=== PATIENT | male | born 1955 | race Caucasian/White ===

== ENCOUNTER → 2017-05-30 | Outpatient (CLI) | payer MEDICARE ==
[~2017-05-30] MED LIST: CEPH-38 PO; DIAZ10TA PO; IOHEXOL 350 MG/ML 100 ML (OMNIPAQUE 350) VIAL IV ONE; METH10TA2 PO; NS 250 ML (IVPB) BAG IV ONE; antibx
--- NOTE | 2017-05-30 15:01 | Diagnostic Imaging Report ---
PROCEDURE: CT abdomen and pelvis with and without contrast. TECHNIQUE: Precontrast acquisitions were acquired through the abdomen and pelvis. Multiple contiguous axial images were obtained through the abdomen and pelvis after the administration of intravenous contrast. INDICATION: Scrotal pain. Pelvic pain. Flank pain. Hematuria. COMPARISON: 11/17/2009 FINDINGS: Included portions of the lung bases show punctate intrafissural micronodule on the left (image 7, series 2). This is stable compared to 11/17/2009. CT abdomen: Small bowel loops are nondistended. Normal appendix is identified. Kidneys have an unremarkable CT appearance. No renal or ureteral calculi are seen on either side. Additionally, there is no hydroureteronephrosis or other evidence of obstruction. Liver is diffusely hypodense consistent with hepatic steatosis. The spleen, pancreas, and adrenal glands have a normal appearance. There is no loculated fluid collection, free fluid, nor free air within the abdomen. No abnormal mesenteric or retroperitoneal adenopathy is seen. There is mild calcified aortic and arterial atherosclerosis. Bony structures show no acute abnormalities. CT pelvis: Urinary bladder is grossly unremarkable. There is no loculated fluid collection, free fluid, nor free air within the pelvis. No abnormal adenopathy is seen. Bony structures show no acute abnormalities. IMPRESSION: 1. No acute abnormalities are seen within the abdomen or pelvis. Kidneys and renal collecting systems have an unremarkable CT appearance. 2. Hepatic steatosis. Dictated by: Dictated on workstation # [id number]
== END ==
LOC: RAD 13:27
PROVIDERS: ATTEND Nurse Practitioner Family
DX: K76.2 Central hemorrhagic necrosis of liver (principal); N50.82 Scrotal pain; R31.9 Hematuria, unspecified
CPT/HCPCS: 74178

== ENCOUNTER 2017-06-21 08:17 | Emergency (ER) | payer MEDICARE ==
[~2017-06-21] VITALS: Ht 193 cm; Wt 124.7 kg
[~2017-06-21 08:17] MED LIST changes: -IOHEXOL 350 MG/ML 100 ML (OMNIPAQUE 350) VIAL IV ONE; -NS 250 ML (IVPB) BAG IV ONE
--- NOTE | 2017-06-21 08:42 | ED General ---
General Chief Complaint: General Problems/Pain Stated Complaint: PAIN MANAGEMENT Source of Information: Patient Exam Limitations: Other (PT MANIC--TALKING NON-STOP VERY LOUDLY, DIFFICULT TO KEEP ON SUBJECT) History of Present Illness Date Seen by Provider: Jun 21, 2017 Time Seen by Provider: 08:28 Initial Comments PT ARRIVES VIA POV --WALKS INTO ER ON HIS OWN, USING 2 CANES PT C/O SEVERE LEFT LEG AND GROIN PAIN FOR OVER A MONTH--PAIN IS NO DIFFERENT TODAY, HAS NOT TAKEN ANYTHING FOR PAIN AT ANY TIME. PT STATES HE WAS MAKING THE BED, AND "PULLED HIS HAMSTRING" AND HAS HAD PAIN UP AND DOWN MEDIAL ASPECT OF LEFT LEG AND INTO HIS GROIN EVER SINCE--PT'S MAIN COMPLAINT IS PAIN IN HIS GROIN PT STATES HIS FEET ARE ALWAYS NUMB AND TINGLY AND ARE NO DIFFERENT TODAY, NO NEW PARESTHESIAS AND NO MOTOR DEFICITS NO PROBLEMS URINATING. PT STATES HE SAW DR. CABRERA 3-4 WEEKS AGO FOR THIS PROBLEM AND WAS STARTED ON DIABETES MEDICATION AND WAS NOT GIVEN ANYTHING FOR PAIN --PT STATES HE QUIT TAKING THE DIABETES MEDICINE BECAUSE IT MADE HIM SICK. PT STATES "SHE TOLD ME TO COME HERE AND SHE WOULD ADMIT ME TO THE ER FOR PAIN MANAGEMENT AND MRI"--RN CALLED DR. CABRERA'S OFFICE AND SPOKE WITH HER NURSE. PT IS EXTREMELY NON-COMPLIANT, CALLS THEIR OFFICE NEARLY EVERY DAY FOR VARIOUS REASONS, SHE HAS REFERRED HIM TO PAIN MANAGEMENT, BUT THEY WILL NOT SEE HIM WITHOUT ANY KIND OF IMAGING, AND PT HAS REFUSED IMAGING, AND OTHER TESTS. PT STATES HE HAS CHRONIC NECK PAIN , SHOULDER PAIN AND KNEE PAIN AND USED TO BE ON OXYCODONE BUT HE QUIT TAKING IT OVER A YEAR AGO. HE STATES HE ALSO WAS ON VALIUM FOR ANXIETY BUT HE QUIT TAKING IT IN APRIL--STATES "BECAUSE I WANTED TO TAKE PAIN MEDICINE FOR MY KNEES" --YET PT CLAIMS HE HAS NOT TAKEN ANYTHING FOR PAIN IN OVER A YEAR ON MED RECONCILIATION, PT WAS PRESCRIBED HYDROCODONE BY DR. CABRERA ON 05/17/17 FOR #90 AND ALSO ON 04/17/17 FOR #90 ADDITIONALLY, PT HAD BEEN PRESCRIBED VALIUM #120 EACH MONTH IN DECEMBER, JANUARY AND MARCH 2017. PT WAS ALSO PRESCRIBED DICLOFENAC PT HAS ALSO BEEN ON METHADONE--APPARENTLY YEARS AGO. MUCH LATER PT NOW STATES THAT DR CABRERA GAVE HIM "SOME CORTISONE AND ANTI- INFLAMMATORIES" FOR THIS PAIN BUT IT UPSET HIS STOMACH SO HE DID NOT TAKE ANY MORE. PCP: DR. CABRERA Allergies and Home Medications Allergies Coded Allergies: No Allergy Information Available (Unverified , 05/30/17) Home Medications No Active Prescriptions or Reported Meds Constitutional: no symptoms reported Gastrointestinal: no symptoms reported Genitourinary: see HPI, No dysuria Musculoskeletal: see HPI Skin: no symptoms reported Psychiatric/Neurological: See HPI Past [id number] Hx Patient Social History Alcohol Use: Denies Use Recreational Drug Use: No Smoking Status: Never a Smoker Recent Foreign Travel: No Contact w/Someone Who Travel: No Surgeries History of Surgeries: Yes (C-SPINE FX/REPAIR) Surgeries: Orthopedic, Tonsillectomy Respiratory History of Respiratory Disorde: No Cardiovascular History of Cardiac Disorders: Yes Cardiac Disorders: Hypertension Neurological History of Neurological Disord: Yes Neurological Disorders: Neuropathy Genitourinary History of Genitourinary Disor: No Gastrointestinal History of Gastrointestinal Di: No Musculoskeletal History of Musculoskeletal Dis: Yes (CHRONIC NECK PAIN, SHOULDER PAIN, KNEE PAIN) Musculoskeletal Disorders: Fractures Endocrine History of Endocrine Disorders: Yes Endocrine Disorders: Diabetes, Non-Insulin dep HEENT History of HEENT Disorders: No Cancer History of Cancer: No Psychosocial History of Psychiatric Problem: Yes Behavioral Health Disorders: Anxiety Integumentary History of Skin or Integumenta: No Blood Transfusions History of Blood Disorders: No Physical Exam Vital Signs Vital Signs - First Documented 06/21/17 08:30 Temp 98.1 Pulse 115 Resp 18 B/P (MAP) 139/100 (113) Pulse Ox 98 Capillary Refill : General Appearance: No Apparent Distress, Anxious, Other (VERY DRAMATIC, TALKS NON-STOP VERY LOUDLY, AND DIFFICULT TO KEEP ON SUBJECT--PT MANIC) HEENT: PERRL/EOMI Respiratory: Normal Breath Sounds, No Accessory Muscle Use, No Respiratory Distress Cardiovascular: Regular Rate, Rhythm, No Edema, No Murmur, Normal Peripheral Pulses Gastrointestinal: Non Tender, Soft Neurologic/Psychiatric: Alert, Oriented x3, No Motor/Sensory Deficits, safety tech II- XII Norm as Tested Skin: Normal Color, Warm/Dry Progress/Results/Core Measures Suspected Sepsis SIRS Temperature: Pulse: Respiratory Rate: Laboratory Tests 06/21/17 11:20: White Blood Count 10.1 Blood Pressure / Mean: Laboratory Tests 06/21/17 11:20: Creatinine 0.93, Platelet Count 292, Total Bilirubin 0.7 06/21/17 11:55: INR Comment 1.1 Results/Orders Lab Results Laboratory Tests Test 06/21/17 11:20 06/21/17 11:55 06/21/17 12:00 Range/Units White Blood Count 10.1 4.3-11.0 10^3/uL Red Blood Count 5.11 4.35-5.85 10^6/uL Hemoglobin 16.2 13.3-17.7 G/DL Hematocrit 46 40-54 % Mean Corpuscular Volume 91 80-99 FL Mean Corpuscular Hemoglobin 32 25-34 PG Mean Corpuscular Hemoglobin Concent 35 32-36 G/DL Red Cell Distribution Width 12.7 10.0-14.5 % Platelet Count 292 130-400 10^3/uL Mean Platelet Volume 9.4 7.4-10.4 FL Neutrophils (%) (Auto) 68 42-75 % Lymphocytes (%) (Auto) 20 12-44 % Monocytes (%) (Auto) 9 0-12 % Eosinophils (%) (Auto) 3 0-10 % Basophils (%) (Auto) 0 0-10 % Neutrophils # (Auto) 6.9 1.8-7.8 X 10^3 Lymphocytes # (Auto) 2.0 1.0-4.0 X 10^3 Monocytes # (Auto) 0.9 0.0-1.0 X 10^3 Eosinophils # (Auto) 0.3 0.0-0.3 10^3/uL Basophils # (Auto) 0.0 0.0-0.1 10^3/uL Sodium Level 137 135-145 MMOL/L Potassium Level 3.9 3.6-5.0 MMOL/L Chloride Level 105 98-107 MMOL/L Carbon Dioxide Level 24 21-32 MMOL/L Anion Gap 8 5-14 MMOL/L Blood Urea Nitrogen 12 7-18 MG/DL Creatinine 0.93 0.60-1.30 MG/DL Estimat Glomerular Filtration Rate > 60 BUN/Creatinine Ratio 13 Glucose Level 132 H 70-105 MG/DL Calcium Level 9.6 8.5-10.1 MG/DL Total Bilirubin 0.7 0.1-1.0 MG/DL Aspartate Amino Transf (AST/SGOT) 19 5-34 U/L Alanine Aminotransferase (ALT/SGPT) 25 0-55 U/L Alkaline Phosphatase 108 40-136 U/L Total Protein 7.9 6.4-8.2 GM/DL Albumin 4.4 3.2-4.5 GM/DL Prothrombin Time 14.0 12.2-14.7 SEC INR Comment 1.1 0.8-1.4 Activated Partial Thromboplast Time 29 24-35 SEC Urine Color YELLOW Urine Clarity CLEAR Urine pH 5 5-9 Urine Specific [place] 1.020 1.016-1.022 Urine Protein NEGATIVE NEGATIVE Urine Glucose (UA) 3+ H NEGATIVE Urine Ketones NEGATIVE NEGATIVE Urine Nitrite NEGATIVE NEGATIVE Urine Bilirubin NEGATIVE NEGATIVE Urine Urobilinogen NORMAL NORMAL MG/DL Urine Leukocyte Esterase NEGATIVE NEGATIVE Urine RBC (Auto) NEGATIVE NEGATIVE Urine RBC NONE /HPF Urine WBC NONE /HPF Urine Crystals NONE /LPF Urine Bacteria NEGATIVE /HPF Urine Casts NONE /LPF Urine Mucus SMALL H /LPF Urine Culture Indicated NO Urine Opiates Screen NEGATIVE NEGATIVE Urine Oxycodone Screen NEGATIVE NEGATIVE Urine Methadone Screen NEGATIVE NEGATIVE Urine Propoxyphene Screen NEGATIVE NEGATIVE Urine Barbiturates Screen NEGATIVE NEGATIVE Ur Tricyclic Antidepressants Screen NEGATIVE NEGATIVE Urine Phencyclidine Screen NEGATIVE NEGATIVE Urine Amphetamines Screen NEGATIVE NEGATIVE Urine Methamphetamines Screen NEGATIVE NEGATIVE Urine Benzodiazepines Screen POSITIVE H NEGATIVE Urine Cocaine Screen NEGATIVE NEGATIVE Urine Cannabinoids Screen POSITIVE H NEGATIVE My Orders Orders - PETE JOHN DO Cbc With Automated Diff (06/21/17 09:19) Comprehensive Metabolic Panel (06/21/17 09:19) Drug Screen Stat (Urine) (06/21/17 09:19) Protime With Inr (06/21/17 09:19) Partial Thromboplastin Time (06/21/17 09:19) Ua Culture If Indicated (06/21/17 09:19) Us Venous Lower Ext Lt (06/21/17 09:19) Vital Signs/I&O Vital Sign - Last 12Hours 06/21/17 08:30 Temp 98.1 Pulse 115 Resp 18 B/P (MAP) 139/100 (113) Pulse Ox 98 Capillary Refill : Diagnostic Imaging Comments ULTRASOUND / VENOUS DOPPLER LEFT LEG--NO DVT. PER RADIOLOGIST REPORT @ 1300 Reviewed: Reviewed by Me Departure Impression Impression: Primary Impression: Left leg pain Disposition: 01 HOME, SELF-CARE Condition: Stable Departure-Patient Inst. Referrals: EUFEMIA CABRERA DO (PCP/Family) Primary Care Physician Patient Instructions: Muscle and Bone Pain (DC) Add. Discharge Instructions: ACTIVITIES TOLERATED FOLLOW UP WITH DR CABRERA NEXT WEEK FOR FURTHER CARE All discharge instructions reviewed with patient and/or family. Voiced understanding. Scripts Meloxicam (Mobic) 15 Mg Tablet 15 MG PO DAILY, #10 TAB Prov: PETE JOHN DO 06/21/17 Tizanidine HCl (Zanaflex) 4 Mg Capsule 4 MG PO TID, #15 CAP Prov: PETE JOHN DO 06/21/17 PETE JOHN DO Jun 21, 2017 08:42
--- NOTE | 2017-06-21 10:36 | Diagnostic Imaging Report ---
PROCEDURE: US left lower extremity venous. TECHNIQUE: Multiple real-time grayscale images were obtained over the left lower extremity in various projections. Additional duplex Doppler and color Doppler images were also obtained. INDICATION: Left leg pain. FINDINGS: There is no evidence of a left lower extremity DVT. The left lower extremity deep venous system demonstrates normal response to augmentation and Valsalva. No thrombus is seen. No fluid collections are identified. IMPRESSION: No evidence of left lower extremity DVT. Dictated by: Dictated on workstation # [id number]
[2017-06-21 11:31] LABS: BASOPHILS % (AUTO) 0 % (0-10); EOSINOPHILS # (AUTO) 0.3 10^3/uL (0.0-0.3); EOSINOPHILS % (AUTO) 3 % (0-10); HEMATOCRIT 46 % (40-54); HEMOGLOBIN 16.2 G/DL (13.3-17.7); LYMPHOCYTES % (AUTO) 20 % (12-44); MEAN CORPUSCULAR HEMOGLOBIN 32 PG (25-34); MEAN CORPUSCULAR HGB CONC 35 G/DL (32-36); MEAN CORPUSCULAR VOLUME 91 FL (80-99); MEAN PLATELET VOLUME 9.4 FL (7.4-10.4); MONOCYTES # (AUTO) 0.9 X 10^3 (0.0-1.0); MONOCYTES % (AUTO) 9 % (0-12); NEUTROPHILS # (AUTO) 6.9 X 10^3 (1.8-7.8); NEUTROPHILS % (AUTO) 68 % (42-75); PLATELET COUNT 292 10^3/uL (130-400); RED BLOOD COUNT 5.11 10^6/uL (4.35-5.85); RED CELL DISTRIBUTION WIDTH 12.7 % (10.0-14.5); WHITE BLOOD COUNT 10.1 10^3/uL (4.3-11.0)
[2017-06-21 11:47] LABS: ALANINE AMINOTRANSFERASE 25 U/L (0-55); ALBUMIN 4.4 GM/DL (3.2-4.5); ALKALINE PHOSPHATASE 108 U/L (40-136); BILIRUBIN,TOTAL 0.7 MG/DL (0.1-1.0); BUN/CREATININE RATIO 13; CALCIUM 9.6 MG/DL (8.5-10.1); CARBON DIOXIDE 24 MMOL/L (21-32); CHLORIDE 105 MMOL/L (98-107); CREATININE SERUM 0.93 MG/DL (0.60-1.30); GFR ESTIMATED > 60; GLUCOSE 132 MG/DL (70-105); POTASSIUM 3.9 MMOL/L (3.6-5.0); SODIUM 137 MMOL/L (135-145); TOTAL PROTEIN 7.9 GM/DL (6.4-8.2)
[2017-06-21 12:08] LABS: BILIRUBIN,URINE NEGATIVE (NEGATIVE); CLARITY,URINE CLEAR; COLOR,URINE YELLOW; GLUCOSE, URINE (UA) 3+ (NEGATIVE); KETONES,URINE NEGATIVE (NEGATIVE); LEUKOCYTE ESTERASE ,URINE NEGATIVE (NEGATIVE); NITRITE,URINE NEGATIVE (NEGATIVE); PH,URINE 5 (5-9); PROTEIN,URINE NEGATIVE (NEGATIVE); UROBILINOGEN,URINE NORMAL (NORMAL)
[2017-06-21 12:14] LABS: INR 1.1 (0.8-1.4)
[2017-06-21 12:33] LABS: BACTERIA,URINE NEGATIVE /HPF
[2017-06-21 12:39] LABS: AMPHETAMINE SCREEN, URINE NEGATIVE (NEGATIVE); BARBITURATE SCREEN URINE NEGATIVE (NEGATIVE); BENZODIAZEPINES SCREEN URINE POSITIVE (NEGATIVE); CANNABINOID SCREEN, URINE POSITIVE (NEGATIVE); COCAINE SCREEN URINE NEGATIVE (NEGATIVE); METHADONE STAT NEGATIVE (NEGATIVE); METHAMPHETAMINE SCREEN URINE S NEGATIVE (NEGATIVE); OPIATE SCREEN URINE NEGATIVE (NEGATIVE); OXYCODONE STAT NEGATIVE (NEGATIVE); PROPOXYPHENE STAT NEGATIVE (NEGATIVE); TRICYCLIC ANTIDEPRESSANTS SCRE NEGATIVE (NEGATIVE)
[2017-06-21] MEDS ORDERED: TIZA4CAP PO (13:07)
[2017-06-21] MEDS ORDERED: MELO15TA14 PO (13:07)
[2017-06-21 13:17] VITALS: BP 126/88
== END 2017-06-21 13:17 | disposition home or self-care (01) ==
LOC: EDUNIT# 08:17 → ER 08:19
DX: M79.605 Pain in left leg (principal); I10 Essential (primary) hypertension; E11.40 Type 2 diabetes mellitus with diabetic neuropathy, unspecified; F41.9 Anxiety disorder, unspecified; Z90.89 Acquired absence of other organs
CPT/HCPCS: 36415; 80053; 80306; 81000; 85025; 85610; 85730

== ENCOUNTER → 2017-07-04 | Outpatient (CLI) | payer MEDICARE ==
[~2017-07-04] MED LIST changes: +MELO15TA14 PO; +TIZA4CAP PO
--- NOTE | 2017-07-04 17:53 | Diagnostic Imaging Report ---
EXAMINATION: Left hip at 3:26 p.m. INDICATION: Left hip pain. Two views were obtained. FINDINGS: There is no fracture, dislocation, or acute bony abnormality evident. There is fairly severe degenerative disease involving the hip joint. The degenerative changes do seem to have progressed since the prior CT abdomen/pelvis exam of 11/07/2009. The soft tissues are unremarkable. IMPRESSION: 1. There is no evidence for an acute bony abnormality. 2. 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 Dictated by: Dictated on workstation # [id number]
--- NOTE | 2017-07-04 17:55 | Diagnostic Imaging Report ---
EXAMINATION: Lumbar spine. INDICATION: Back Pain. AP, lateral, and spot lateral views were obtained. There are no prior studies available for comparison. FINDINGS: The lateral view shows the vertebral body heights and alignment to be generally within normal limits. There may be minimal retrolisthesis of L5 with respect to S1. The intervertebral spaces are fairly well maintained. There is no fracture or acute bony abnormality evident. There is no sign of a paraspinal mass. There is mild symmetrical sclerosis of the sacroiliac joints. IMPRESSION: 1. There is no evidence for an acute bony abnormality. 2. If clinical concern regarding an underlying abnormality persists, then MRI would be recommended for further study. Dictated by: Dictated on workstation # [id number]
== END ==
LOC: RAD 14:49
PROVIDERS: ATTEND Family Medicine
DX: M16.12 Unilateral primary osteoarthritis, left hip (principal); M54.9 Dorsalgia, unspecified
CPT/HCPCS: 72100; 73502